=== PATIENT | male | born 1970 | race Caucasian/White ===

== ENCOUNTER → 2021-02-25 09:22 | Emergency (ER) | payer BC, SELFPAY ==
[2021-02-25 09:23] VITALS: TEMP -17.7; TEMP 0; O2SAT 77; BMI 55.3
--- NOTE | 2021-02-25 09:39 | EX.ED.CRITCA ---
HPI History of Present Illness Chief Complaint: CPR Onset/Context/Timing Onset: Today Context: Sudden Onset Timing: Continuous Quality: Unresponsive Location: Generalized Narrative Narrative: Patient presents in cardiac arrest. Patient was at work when he went down. It was witnessed by bystanders. CPR was started immediately. EMS continued CPR. EMS placed and I gel airway. EMS reports that they noticed the patient was in V. fib and defibrillated him once. EMS states that the patient was in asystole after that. ACLS protocols were continued. Patient was transferred to the emergency department. PFSH PFSH unable to obtain unable to obtain unable to obtain ROS ROS ED Review of Systems ROS Unobtainable: other Details: Patient is unresponsive and in cardiac arrest EXAM Physical Exam Const Vital Signs: 02/25/21 09:23 Temperature 0 F L Temperature Source Temporal Oxygen Delivery Method Ambu-Bag Oxygen Flow Rate (L/min) 15 Positive obese Nutritional Appearance: obese HEENT normocephalic, atraumatic and cyanosis of lips/distal nose Resp Resp Narrative: There were no spontaneous respirations noted. Breath sounds were equal with mechanical ventilation after intubation. Cardio Cardio Narrative: There were no heart tones auscultated. Carotid and femoral pulses were unable to be palpated. GI non-distended Neuro Neuro Narrative: Patient is unresponsive and comatose. MDM MDM MDM Narrative Medical decision making narrative: CPR was continued. Patient was intubated with a 7.5 ET tube to 23 cm at the lip. There is good color change on end-tidal CO2. There is condensation in the tube. Breath sounds are equal bilaterally. Patient was given a dose of epinephrine and a dose of sodium bicarbonate. CPR was continued. Patient remained in asystole. Patient was given a repeat dose of epinephrine. CPR was continued. Patient remained in asystole. Patient was pronounced at 0927. Procedures Intubations Intubation Method: orotracheal Intubation Verification: Positive color change and Bilateral breath sounds confirmed Intubation Complications: no complications Discharge Plan Triage Chief Complaint: CPR ED Provider: Govind Cole Dx/Rx/DC Orders Clinical Impression: Cardiopulmonary arrest Primary Care Provider: Care Physician,No Primary Disposition Disposition: Date/Time: 02/25/21 09:27
--- NOTE | 2021-02-25 10:14 | ED.RN ---
[place] [employer] HELPING TO FIND FAMILY. PER SONAL, NO EMERGENCY CONTACTS
--- NOTE | 2021-02-25 10:35 | ED.RN ---
APPROX 300 ML 0.9 NS GIVEN
== END ==
PROVIDERS: Emergency Provider Emergency Medicine
DX: I46.9 Cardiac arrest, cause unspecified (principal); E66.9 Obesity, unspecified
CPT/HCPCS: 31500; 92950; 99291; A4216